=== PATIENT | female | born 1950 | race Caucasian/White ===

== ENCOUNTER 2021-08-01 12:00 | Outpatient (CLI) | payer MEDICARE, OTHER | END 2021-08-01 12:01 | disposition home or self-care (01) | LOC: BICULT 12:00 | PROVIDERS: ATTEND Nurse Practitioner Family | DX: R10.13 Epigastric pain (principal); K76.0 Fatty (change of) liver, not elsewhere classified | CPT/HCPCS: 76700 ==

== ENCOUNTER 2023-07-12 09:38 | Outpatient (CLI) | payer MEDICARE, OTHER | END 2023-07-12 09:39 | disposition home or self-care (01) | LOC: RAD 09:38 | PROVIDERS: ATTEND Internal Medicine Cardiovascular Disease | DX: R06.02 Shortness of breath (principal) | CPT/HCPCS: 71046 ==